=== PATIENT | female | born 1945 | race Caucasian/White ===

== ENCOUNTER 2017-06-08 08:00 | Outpatient (CLI) | payer MEDICARE | END 2017-06-08 08:01 | disposition home or self-care (01) | LOC: BICMAMMO 08:00 | PROVIDERS: ATTEND Family Medicine | DX: Z12.31 Encounter for screening mammogram for malignant neoplasm of breast (principal); R92.1 Mammographic calcification found on diagnostic imaging of breast | CPT/HCPCS: 77063; G0202; 77067 ==

== ENCOUNTER 2018-06-10 09:16 | Outpatient (CLI) | payer MEDICARE ==
--- NOTE | 2018-06-10 10:48 | BD ---
BONE DENSITOMETRY USING DEXA: Date: 06/10/18 HISTORY: Postmenopausal screening for osteoporosis. FINDINGS: Lumbar Spine: BMD (g/cm2) L1 0.923 T-Score: -0.6 Z-Score: 1.4 L2 0.979 T-Score: -0.4 Z-Score: 1.8 L3 1.064 T-Score: -0.2 Z-Score: 2.2 L4 1.163 T-Score: -0.9 Z-Score: 3.4 L1-L4 1.038 T-Score: -0.1 Z-Score: 2.2 Femoral Neck: 0.720 T-Score: -1.2 Z-Score: 0.8 Total Femur: 1.008 T-Score: 0.5 Z-Score: 2.2 There has been interval improvement of 0.1% in the bone mineral density of the lumbar spine and an im provement of 8% in the bone mineral density of the proximal femur since 03/10/16. The 10 year fracture risk for a major osteoporotic fracture is 9.5% and for a hip fracture is 1.4%. IMPRESSION: Osteopenia. POS: [facility]
== END 2018-06-10 09:17 | disposition home or self-care (01) ==
LOC: BICMAMMO 09:16
PROVIDERS: ATTEND Family Medicine
DX: Z12.31 Encounter for screening mammogram for malignant neoplasm of breast (principal); Z78.0 Asymptomatic menopausal state; M85.859 Other specified disorders of bone density and structure, unspecified thigh
CPT/HCPCS: 77063; 77067; 77080

== ENCOUNTER 2019-05-30 09:00 | Outpatient (CLI) | payer MEDICARE ==
--- NOTE | 2019-05-30 09:54 | ULT ---
COMPLETE ABDOMINAL ULTRASOUND: HISTORY: Upper abdominal pain. FINDINGS: Liver echogenicity is within normal limits. No evidence of gallstones, wall thickening, edema or david cholecystic fluid. The common bile duct is 0.4 cm. The visualized pancreas, IVC, aorta and spleen are unremarkable. There is no renal hydronephrosis. No abscess or abnormal fluid collection. IMPRESSION: Unremarkable abdominal ultrasound. POS: [facility]
== END 2019-05-30 09:01 | disposition home or self-care (01) ==
LOC: BICULT 09:00
PROVIDERS: ATTEND Family Medicine
DX: R10.10 Upper abdominal pain, unspecified (principal)
CPT/HCPCS: 93975

== ENCOUNTER 2019-06-12 09:43 | Outpatient (CLI) | payer MEDICARE ==
--- NOTE | 2019-06-12 12:40 | MMO ---
Bilateral MAMMO Bilat Screen [facility]. CLINICAL HISTORY: Patient is 74 years old and is seen for screening. The patient has no family history of breast cancer. The patient has no personal history of cancer. VIEWS: The views performed were: bilateral craniocaudal with tomosynthesis and bilateral mediolateral oblique with tomosynthesis. FILMS COMPARED: The present examination has been compared to prior imaging studies performed at [facility] on 06/08/2017 and 06/10/2018, and at [facility] on 03/08/2015 and 03/10/2016. This study has been interpreted with the assistance of computer-aided detection. MAMMOGRAM FINDINGS: There are scattered fibroglandular densities. There are stable benign appearing calcifications seen in both breasts. There are no suspicious masses, suspicious calcifications, or new areas of architectural distortion. IMPRESSION: THERE IS NO MAMMOGRAPHIC EVIDENCE OF MALIGNANCY. A ROUTINE FOLLOW-UP MAMMOGRAM IN 1 YEAR IS RECOMMENDED. THE RESULTS OF THIS EXAM WERE SENT TO THE PATIENT. ACR BI-RADS Category 2 - Benign finding MAMMOGRAPHY NOTE: 1. A negative mammogram report should not delay a biopsy if a dominant of clinically suspicious mass is present. 2. Approximately 10% to 15% of breast cancers are not detected by mammography. 3. Adenosis and dense breasts may obscure an underlying neoplasm. Reported by: JANEE CELESTIN MD Electonically Signed: [id number]
== END 2019-06-12 09:44 | disposition home or self-care (01) ==
LOC: BICMAMMO 09:43
PROVIDERS: ATTEND Family Medicine
DX: Z12.31 Encounter for screening mammogram for malignant neoplasm of breast (principal)
CPT/HCPCS: 77063; 77067

== ENCOUNTER 2019-06-13 07:59 | Outpatient (CLI) | payer MEDICARE ==
[2019-06-13] MEDS ORDERED: Iopamidol-370 76% 500 ML 1 ML ONE (13:35)
--- NOTE | 2019-06-13 13:57 | CT ---
CT ABDOMEN AND PELVIS WITH INTRAVENOUS CONTRAST: HISTORY: Generalized abdominal pain. COMPARISON: Ultrasound study from 05/30/2019. FINDINGS: ABDOMEN: The lung bases show some linear scarring. The liver, spleen, pancreas and gallbladder regions appear unremarkable. The right and left adrenal glands and the right and left kidneys are normal. Parapelvic cysts are noted on the left. No renal calculi. There is no significant periaortic or mesen teric lymphadenopathy seen. PELVIS: The appendix is normal. There is no evidence of adenopathy or mass. No inflammatory process. IMPRESSION: No acute findings of the abdomen or pelvis. POS: [facility]
== END 2019-06-13 08:00 | disposition home or self-care (01) ==
LOC: BICCT 07:59
PROVIDERS: ATTEND Family Medicine
DX: R10.84 Generalized abdominal pain (principal)
CPT/HCPCS: 74177; Q9967

== ENCOUNTER 2020-06-14 09:04 | Outpatient (CLI) | payer MEDICARE ==
--- NOTE | 2020-06-14 11:31 | MMO ---
Bilateral MAMMO Bilat Screen [facility]. CLINICAL HISTORY: Patient is 75 years old and is seen for screening. The patient has no family history of breast cancer. The patient has no personal history of cancer. VIEWS: The views performed were: bilateral craniocaudal with tomosynthesis and bilateral mediolateral oblique with tomosynthesis. FILMS COMPARED: The present examination has been compared to prior imaging studies performed at [facility] on 06/08/2017, 06/10/2018 and 06/12/2019, and at [facility] on 03/10/2016. This study has been interpreted with the assistance of computer-aided detection. MAMMOGRAM FINDINGS: There are scattered fibroglandular densities. Benign calcifications are noted bilaterally. There are no suspicious masses, suspicious calcifications, or new areas of architectural distortion. IMPRESSION: THERE IS NO MAMMOGRAPHIC EVIDENCE OF MALIGNANCY. A ROUTINE FOLLOW-UP MAMMOGRAM IN 1 YEAR IS RECOMMENDED. THE RESULTS OF THIS EXAM WERE SENT TO THE PATIENT. ACR BI-RADS Category 2 - Benign finding MAMMOGRAPHY NOTE: 1. A negative mammogram report should not delay a biopsy if a dominant of clinically suspicious mass is present. 2. Approximately 10% to 15% of breast cancers are not detected by mammography. 3. Adenosis and dense breasts may obscure an underlying neoplasm. Reported by: STORMY MARTINEZ MD Electonically Signed: [id number]
== END 2020-06-14 09:05 | disposition home or self-care (01) ==
LOC: BICMAMMO 09:04
PROVIDERS: ATTEND Family Medicine
DX: Z12.31 Encounter for screening mammogram for malignant neoplasm of breast (principal)
CPT/HCPCS: 77063; 77067

== ENCOUNTER 2020-07-03 09:33 | Outpatient (CLI) | payer MEDICARE ==
--- NOTE | 2020-07-03 11:30 | CT ---
CT BRAIN WITHOUT CONTRAST: Date: 07/03/2020 HISTORY: Syncope and near syncopal episodes. FINDINGS: No evidence of acute infarct, hemorrhage, midline shift, or abnormal extra-axial fluid collections ar e seen. The ventricular size is appropriate and the basilar cisterns are patent. The bony calvarium i s intact. The visualized paranasal sinuses are well aerated. IMPRESSION: No CT evidence of acute intracranial process. POS: [facility]
--- NOTE | 2020-07-03 11:33 | ULT ---
BILATERAL CAROTID DUPLEX ULTRASOUND: DATE: 07/03/2020 HISTORY: Syncope and presyncope. TECHNIQUE: Acevedo scale ultrasound with color flow and spectral Doppler imaging of the extracranial carotid artery systems performed bilaterally. FINDINGS: There is mild plaque formation on the left. The peak systolic velocity in the right ICA measures 82 cm/second with an end-diastolic velocity of 2 6 cm/second and a systolic ratio of 0.88. The peak systolic velocity in the left ICA measures 119 cm/second with an end-diastolic velocity of 4 5 cm/second and a systolic ratio of 1.28. Flow in both vertebral arteries remains antegrade. IMPRESSION: No evidence of hemodynamically significant stenosis. POS: [facility]
== END 2020-07-03 09:34 | disposition home or self-care (01) ==
LOC: BICCT 09:33
PROVIDERS: ATTEND Family Medicine
DX: R55 Syncope and collapse (principal); R27.0 Ataxia, unspecified
CPT/HCPCS: 70450; 93880

== ENCOUNTER 2021-06-17 14:16 | Outpatient (CLI) | payer MEDICARE | END 2021-06-17 14:17 | disposition home or self-care (01) | LOC: BICMAMMO 14:16 | PROVIDERS: ATTEND Family Medicine | DX: Z12.31 Encounter for screening mammogram for malignant neoplasm of breast (principal) | CPT/HCPCS: 77063; 77067 ==

== ENCOUNTER 2022-08-12 08:05 | Outpatient (CLI) | payer MEDICARE | END 2022-08-12 08:06 | disposition home or self-care (01) | LOC: BICMAMMO 08:05 | PROVIDERS: ATTEND Family Medicine | DX: Z12.31 Encounter for screening mammogram for malignant neoplasm of breast (principal); Z13.820 Encounter for screening for osteoporosis; Z78.0 Asymptomatic menopausal state; M85.851 Other specified disorders of bone density and structure, right thigh; M85.852 Other specified disorders of bone density and structure, left thigh | CPT/HCPCS: 77063; 77067; 77080 ==

== ENCOUNTER 2023-08-25 09:41 | Outpatient (CLI) | payer MEDICARE | END 2023-08-25 09:42 | disposition home or self-care (01) | LOC: BICMAMMO 09:41 | PROVIDERS: ATTEND Family Medicine | DX: Z12.31 Encounter for screening mammogram for malignant neoplasm of breast (principal) | CPT/HCPCS: 77063; 77067 ==